=== PATIENT | female | born 2005 | race African-American/Black ===

== ENCOUNTER 2024-09-03 10:47 | Emergency (ER) | payer OTHER ==
[~2024-09-03] VITALS: Ht 160 cm; Wt 59.0 kg
[2024-09-03] MEDS ORDERED: IBUP-1955 PO (10:57)
[2024-09-03] MEDS ORDERED: IBUPROFEN 600 MG TABLET ONE (11:01)
[2024-09-03] MEDS: IBUPROFEN 600 MG TABLET PO ONE (11:14)
[2024-09-03 11:48] VITALS: BP 115/70; TEMP 98.2; O2SAT 98
== END 2024-09-03 11:20 ==
LOC: ER 11:00
DX: S06.0X0A Concussion without loss of consciousness, initial encounter (principal); Y08.89XA Assault by other specified means, initial encounter; Y93.89 Activity, other specified; Y92.89 Other specified places as the place of occurrence of the external cause; Y99.8 Other external cause status